=== PATIENT | male | born 1955 | race Caucasian/White ===

== ENCOUNTER → 2023-12-01 12:54 | Outpatient (CLI) | payer MEDICARE, OTHER, SELFPAY ==
--- NOTE | 2023-12-01 12:59 | DI.MRI.S_ITS ---
PROCEDURE: MR OPTIC NRV WWO CON INDICATIONS: VISUAL PROBLEMS/EDEMA OF OPTIC DISC LEFT EYE TECHNIQUE: Noncontrast sagittal T1 spin echo, axial FLAIR, axial gradient echo, axial diffusion and ADC acquired through the brain. Coronal STIR, thin-slice axial T1 spin echo through the orbits. After the administration of contrast, thin-slice axial and coronal T1 spin echo with fat saturation through the orbits, axial and coronal and sagittal T1 spin echo with fat saturation through the brain. COMPARISON: None. FINDINGS: Image quality: Excellent. Orbits: Globes are symmetrical. The optic nerves are normal in size, without abnormal signal or enhancement. No retrobulbar masses or fat abnormalities. The extra-ocular muscles are normal and symmetric in appearance. Lacrimal glands are normal. Optic chiasm is normal. Periorbital soft tissues appear normal. CSF spaces: Ventricles are normal in size and shape. Basal cisterns are patent. No extra-axial fluid collections. Brain: No intracranial bleeds or mass effects. No abnormal intracranial enhancement. Pratt-white matter interface is intact. Diffusion weighted images demonstrate no acute ischemic insults. Pituitary gland appears normal, without sellar or suprasellar masses. Brainstem appears normal. Normal intravascular flow voids are present. Skull and face: Calvarial marrow is normal in signal. Sinuses: Sinuses and mastoids are clear. IMPRESSION: No visualized abnormality. Dictated by: Marisela Aragon M.D. on 12/01/2023 at 20:28 Approved by: Marisela Aragon M.D. on 12/01/2023 at 20:30
== END ==
PROVIDERS: PCP Student in an Organized Health Care Education/Training Program; Referring Provider Psychiatry & Neurology Neurology; Visit Provider Psychiatry & Neurology Neurology
DX: H54.7 Unspecified visual loss (principal); H47.10 Unspecified papilledema; H53.482 Generalized contraction of visual field, left eye
CPT/HCPCS: 70543; 70553; A9579

== ENCOUNTER 2024-02-22 10:05 | Day surgery (SDC) | payer MEDICARE, OTHER, SELFPAY ==
--- NOTE | 2024-02-22 | PATH_ITS ---
[facility] Accession Number: [id number] No. of containers..04 Tissue . 01 Material submitted: . PART A: colon - TRANSVERSE COLON POLYP PART B: colon - CECUM POLYP PART C: colon - SIGMOID POLYP PART D: colon - RECTAL POLYP . 01 Clinical history: . HISTORY OF COLON POLYPS . 01 Diagnosis: Part A: TRANSVERSE COLON POLYP: Sessile serrated adenoma. . Part B: CECUM POLYP: Sessile serrated adenoma. . Part C: SIGMOID POLYP: Tubular adenoma. . Part D: RECTAL POLYP: Scant debris. No intact tissue present. [facility] 02/24/2024 1502 Local . 01 Electronically signed: . Barron Torres MD, Pathologist NPI- [id number] . 01 Gross description: . A. Received in formalin with two patient identifiers and transverse colon, is a single richey-brown soft tissue fragment, 0.8 cm in in greatest dimension, submitted in A1. . B. Received in formalin with two patient identifiers and cecum polyp, is a single richey soft tissue fragments, 0.5 cm in greatest dimension, submitted in B1. . C. Received in formalin with two patient identifiers and sigmoid polyp, is a single richey-brown soft tissue fragment, 0.5 cm in greatest dimension, submitted in C1. . D. Received in formalin with two patient identifiers and rectal polyp, is a single fragment of soft tissue or debris, 0.2 cm in greatest dimension, submitted in D1. ([id number]) /MRV 02/24/2024 1502 Local . 01 Pathologist provided ICD-10: D12.0, D12.3, D12.5, K62.1 . 01 CPT . 265887, 625616, 298149, [id number] Specimen Comment: A courtesy copy of this report has been sent to [phone] Performed at: [address] [facility] [address], [place] [id number] MD Barron Torres MD Phone: [phone]
--- NOTE | 2024-02-22 10:29 | PM.HP.1 ---
History of Present Illness History of Present Illness Date Patient Seen: 02/22/24 Time Patient Seen: 10:29 Chief complaint: Dx Colonoscopy w/poss bx Narrative: 68-year-old male reporting some benign polyps removed at colonoscopy some 11 years ago. He believes he was recommended for a 10 year repeat. Review of Systems Review of Systems ROS: Yes All systems reviewed with the patient and are negative except as otherwise documented Exam Const General: cooperative HENMT Head: normal to inspection Eyes General: appearance normal, both eyes and all related structures Neck Neck: normal visual inspection Chest Chest: normal inspection of the chest Resp Effort & Inspection: normal respiratory effort Cardio Rate: regular rate GI Inspection: normal to inspection Skin General: no rashes or lesions noted Neuro General: patient alert and patient awake Extrem General: normal to inspection and no pedal edema Psych Appearance: grossly normal Assessment & Plan Assessment & Plan narrative: 68-year-old male with a personal history of unknown histology colon polyps. Updated colonoscopy is pursued today. Time-Based Coding :: [TOTAL MINUTES] spent with patient and on the chart (including review of chart, obtaining history, exam, reviewing outside data, placing orders, documenting exam and treatment plan, and counseling patient) on [DATE].
[2024-02-22 10:39] VITALS: BP 158/89; PULSE 70; RESP 16; TEMP 36.8; O2SAT 99
--- NOTE | 2024-02-22 11:44 | P.OP.COLON_ITS ---
Operative Date/Time/Diagnoses Date of procedure: 02/22/24 Time of procedure: 11:44 Pre-op diagnosis: Colon polyps history Post-op diagnosis: same Procedure & Clinicians Study performed: Colonoscopy with hot and cold snare polypectomy Same procedure as scheduled: Yes Indications: Colon polyp history Surgeon: Miki Cabrera Procedure Notes SCOAP/Timeout: Done Procedure in detail: After the risks and benefits were explained, written and verbal informed consent was obtained. The patient was brought into the procedure room and placed into the left lateral decubitus position. Please see anesthesia note for sedation de tails. Digital rectal examination was accomplished. The scope was introduced into the patient and advanced under direct visualization to the cecum as identified by the appendiceal orifice and ileocecal valve. The scope was slowly withdrawn to carefully examine the mucosa for any defects or lesions. Comprehensive imaging was accomplished throughout the rectum including the dentate line. The colon was decompressed, the scope was then removed from the patient who tolerated the procedure well. Adult colonoscope Bowel prep adequate Scope withdrawal time: 17 minutes Sedation minutes: 26 Complications: none Impression: In the cecum there was a 5-6 mm sessile polyp removed with cold snare. There were couple of applications of the tip of the snare to the periphery to ensure all of the polyp that appeared adenomatous was removed or ablated. In the transverse colon there was an approximately 8 mm sessile polyp removed with hot snare. In the sigmoid there was an approximately 7-8 mm sessile polyp also removed with hot snare. In the rectum there was a 5 mm polyp was probably hyperplastic but was removed with hot snare for exclusion of adenomatous change. No additional significant pathology was appreciated throughout. Endoscopic diagnosis Multiple colon polyps Post-procedure Plan for aftercare: 1. Await histology. 2. Repeat colonoscopy will likely be suggested for 3 years. Disposition: PACU
[2024-02-22 11:47] VITALS: BP 100/62; PULSE 60; RESP 14; TEMP 36.2; O2SAT 95
[2024-02-22 11:52] VITALS: BP 115/74; PULSE 65; RESP 18; O2SAT 93
[2024-02-22 11:55] VITALS: BP 119/82; PULSE 60; RESP 18; TEMP 36.3; O2SAT 97
== END 2024-02-22 12:16 | disposition home or self-care (01) ==
PROVIDERS: Referring Provider Internal Medicine Gastroenterology; Visit Provider Internal Medicine Gastroenterology
PROC: 0DJD8ZZ Inspection of Lower Intestinal Tract, Via Natural or Artificial Opening Endoscopic (ICD-10-PCS; CPT 45378; principal; 2024-02-22 11:30)
DX: Z12.11 Encounter for screening for malignant neoplasm of colon (principal); Z86.0100 Personal history of colon polyps, unspecified; D12.3 Benign neoplasm of transverse colon; D12.0 Benign neoplasm of cecum; D12.5 Benign neoplasm of sigmoid colon; K62.1 Rectal polyp
CPT/HCPCS: 45385; J2704